=== PATIENT | male | born 1990 | race Caucasian/White ===

== ENCOUNTER 2021-03-13 02:22 | Emergency (ER) | payer SELFPAY ==
[~2021-03-13] VITALS: Ht 188 cm; Wt 80.3 kg
[2021-03-13] MEDS ORDERED: HYDROCODONE/APAP 5/325MG TABLET ONE (02:59)
[2021-03-13] MEDS ORDERED: HYDROCODONE/APAP 5/325MG TABLET PO ONE (03:00)
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
[2021-03-13] MEDS ORDERED: LIDOCAINE /MPF 1% VIAL 5 ML VIAL ONE (03:01)
[2021-03-13] MEDS ORDERED: LIDOCAINE HCL/MPF 1% 30 ML VIAL IJ ONE (03:02)
[2021-03-13] MEDS ORDERED: HYDR-3972 PO (04:20)
[2021-03-13] MEDS ORDERED: AMOX-430 PO (04:20)
--- NOTE | 2021-03-13 04:22 | NUR ---
EMT AT BEDSIDE, WOUND CARE.
[2021-03-13] MEDS ORDERED: AMOX/CLAVULANATE 875 MG TABLET ONE (04:24)
--- NOTE | 2021-03-13 04:28 | NUR ---
Patient discharged to home in stable condition. Written and verbal after care instructions given. Patient verbalizes understanding of instruction.
[2021-03-13 04:29] VITALS: BP 138/77
[2021-03-13] MEDS ORDERED: AMOX/CLAVULANATE 875 MG TABLET PO ONE (04:30)
== END 2021-03-13 04:29 | disposition home or self-care (01) ==
LOC: ER 02:44
DX: S02.2XXA Fracture of nasal bones, initial encounter for closed fracture (principal); S01.111A Laceration without foreign body of right eyelid and periocular area, initial encounter; J45.909 Unspecified asthma, uncomplicated; F17.200 Nicotine dependence, unspecified, uncomplicated; Z88.2 Allergy status to sulfonamides; Z91.018 Allergy to other foods; V49.49XA Driver injured in collision with other motor vehicles in traffic accident, initial encounter; Y93.89 Activity, other specified; Y92.413 State road as the place of occurrence of the external cause; Y99.8 Other external cause status
CPT/HCPCS: 12011; 70450; 70486; 72125; 99284; J3490